=== PATIENT | male | born 1975 | race Caucasian/White ===

== ENCOUNTER 2017-08-17 22:19 | Emergency (ER) | payer BC, OTHER ==
[~2017-08-17] VITALS: Ht 175.3 cm; Wt 77.8 kg
[2017-08-17 22:26] VITALS: TEMP 36.5; Ht 175.3 cm; Wt 77.8 kg
--- NOTE | 2017-08-17 23:09 | EMERGENCY ROOM VISIT NOTE ---
History Report prepared by Zurdo: Miguel Wilder Under the Supervision of: Dr. Hieu Lancaster M.D. First contact with patient: 22:49 Chief Complaint: ABDOMINAL PAIN Stated Complaint: PAIN IN LOWER STOMACH AND GROIN AREA Nursing Triage Summary: pt c/o lower abdominal/pelvic area pain. states pain has been "off and on since may." denies n/v/d. ciera trauma. History of Present Illness The patient is a 41 year old male who presents to the Emergency Room with complaints of intermittent groin pain beginning a few months ago. The patient states that his pain has been intermittent for the last few months, but notes that his pain has been constant since yesterday. He reports that his pain makes him uncomfortable, and states that it causes him to lose his appetite. He also complains of occasional back pain, and notes that his pain occasionally wraps around his abdomen and shoots down his legs. He denies any nausea, vomiting, fever, and urinary symptoms. The patient reports that he has not noticed that anything he does changes his pain. He states that he is currently on penicillin because he had a tooth pulled last week. The patient notes that he is also on Cipro and Flomax for an enlarged prostate. He reports that he is unsure if his current pain is related to his enlarged prostate. He states that he has seen many different practitioners, and was diagnosed with two different types of hernias and then gallstones and kidney stones after the radiologist misread his CT. The patient notes that he is not satisfied with his previous diagnoses, prompting his visit to the emergency department tonight. He reports that he has a previous history of back problems and has had a ventral hernia repair. Source of History: patient Onset: a few months ago Position: other (groin) Timing: intermittent Associated Symptoms: + abdominal pain, + back pain, No fevers, No nausea, No vomiting, No urinary symptoms Note: The patient also complains of a loss of appetite and leg pain. Review of Systems See HPI for pertinent positives & negatives. A total of 10 systems reviewed and were otherwise negative. Past Medical & Surgical Medical Problems: (1) Anxiety (2) Enlarged prostate (3) Hernia Surgical Problems: (1) H/O tooth extraction (2) H/O ventral hernia repair Family History Diabetes mellitus FHx: cancer Heart disease Hypertension Social History Smoking Status: Never Smoker Alcohol Use: none Marital Status: Housing Status: lives with family Occupation Status: employed Current/Historical Medications Scheduled Hyoscyamine Sulfate (Levsin), 1-2 TAB PO Q6 Penicillin V Potassium (Veetids), 500 MG PO TID Tamsulosin Hcl (Flomax), 0.4 MG PO BID Allergies Coded Allergies: No Known Allergies (Unverified , 08/17/17) Physical Exam Vital Signs Date Time Temp Pulse Resp B/P (MAP) Pulse Ox O2 Delivery O2 Flow Rate FiO2 08/18/17 01:18 78 18 132/81 98 Room Air 08/17/17 23:55 70 18 138/87 98 Room Air 08/17/17 22:26 36.5 66 18 133/84 97 Room Air Physical Exam GENERAL: Patient is anxious appearing and in moderate distress. EYES: No scleral icterus, unremarkable pupils. ENT: Mucous membranes moist, no nasal congestion. NECK: No masses appreciated, no meningismus, trachea is midline. RESPIRATORY: No dyspnea. Clear to auscultation and equal bilaterally. No wheeze , no rhonchi. CARDIOVASCULAR: Regular rate and rhythm. No murmurs, rubs, gallops appreciated. GASTROINTESTINAL: Abdomen soft, no peritonitis. Bowel sounds positive. No masses appreciated. Mild suprapubic tenderness to palpation, no rebound, no guarding. Old healed horizontal upper abdominal incision scar. BACK: No midline tenderness, no CVA tenderness EXTREMITIES: Normal motion all extremities, no cyanosis, no edema. NEUROLOGIC: Alert and oriented, no acute motor or sensory deficits, no focal weakness, cranial nerves grossly intact. SKIN: No rash, no jaundice, no diaphoresis. Medical Decision & Procedures ER Provider Diagnostic Interpretation: Radiology results and stated below per my review and radiologist interpretation: CT ABDOMEN & PELVIS With Contrast: Lower thorax than stress atelectasis. Gallstones. No CT evidence of acute cholecystitis. Liver, spleen, pancreas and adrenal glands are unremarkable. Kidneys, ureters, and urinary bladder are unremarkable. Moderate enlargement of the prostate gland. Appendix is unremarkable. Bowel is unremarkable. Tiny fat- containing hiatal hernia. No acute osseous abnormality. Radiologist: Paxton Herbert MD. Laboratory Results 08/17/17 23:20 Red Blood Count 4.77, Mean Corpuscular Volume 91.2, Mean Corpuscular Hemoglobin 31.0, Mean Corpuscular Hemoglobin Concent 34.0, Mean Platelet Volume 9.3, Neutrophils (%) (Auto) 57.3, Lymphocytes (%) (Auto) 31.1, Monocytes (%) (Auto) 9.6, Eosinophils (%) (Auto) 1.5, Basophils (%) (Auto) 0.3, Neutrophils # (Auto) 5.04, Lymphocytes # (Auto) 2.73, Monocytes # (Auto) 0.84, Eosinophils # (Auto) 0.13, Basophils # (Auto) 0.03 08/17/17 23:20 Test 08/17/17 22:40 08/17/17 23:20 08/17/17 23:24 Urine Color YELLOW Urine Appearance CLEAR (CLEAR) Urine pH 5.5 (4.5-7.5) Urine Specific [place] 1.020 (1.000-1.030) Urine Protein NEG (NEG) Urine Glucose (UA) NEG (NEG) Urine Ketones NEG (NEG) Urine Occult Blood NEG (NEG) Urine Nitrite NEG (NEG) Urine Bilirubin NEG (NEG) Urine Urobilinogen NEG (NEG) Urine Leukocyte Esterase NEG (NEG) Urine WBC (Auto) 1-5 /hpf (0-5) Urine RBC (Auto) 0-4 /hpf (0-4) Urine Hyaline Casts (Auto) 1-5 /lpf (0-5) Urine Epithelial Cells (Auto) 0-5 /lpf (0-5) Urine Bacteria (Auto) NEG (NEG) White Blood Count 8.79 K/uL (4.8-10.8) Red Blood Count 4.77 M/uL (4.7-6.1) Hemoglobin 14.8 g/dL (14.0-18.0) Hematocrit 43.5 % (42-52) Mean Corpuscular Volume 91.2 fL (80-100) Mean Corpuscular Hemoglobin 31.0 pg (25-34) Mean Corpuscular Hemoglobin Concent 34.0 g/dl (32-36) Platelet Count 300 K/uL (130-400) Mean Platelet Volume 9.3 fL (7.4-10.4) Neutrophils (%) (Auto) 57.3 % Lymphocytes (%) (Auto) 31.1 % Monocytes (%) (Auto) 9.6 % Eosinophils (%) (Auto) 1.5 % Basophils (%) (Auto) 0.3 % Neutrophils # (Auto) 5.04 K/uL (1.4-6.5) Lymphocytes # (Auto) 2.73 K/uL (1.2-3.4) Monocytes # (Auto) 0.84 K/uL (0.11-0.59) Eosinophils # (Auto) 0.13 K/uL (0-0.5) Basophils # (Auto) 0.03 K/uL (0-0.2) RDW Standard Deviation 44.4 fL (36.4-46.3) RDW Coefficient of Variation 13.4 % (11.5-14.5) Immature Granulocyte % (Auto) 0.2 % Immature Granulocyte # (Auto) 0.02 K/uL (0.00-0.02) Est Creatinine Clear Calc Drug Dose 110.8 ml/min Estimated GFR () 123.1 Estimated GFR (Non- 106.2 BUN/Creatinine Ratio 12.1 (10-20) Calcium Level 8.7 mg/dl (8.5-10.1) Total Bilirubin 0.3 mg/dl (0.2-1) Direct Bilirubin 0.1 mg/dl (0-0.2) Aspartate Amino Transf (AST/SGOT) 14 U/L (15-37) Alanine Aminotransferase (ALT/SGPT) 26 U/L (12-78) Alkaline Phosphatase 55 U/L (45-117) C-Reactive Protein < 0.29 mg/dl (0-0.29) Total Protein 7.5 gm/dl (6.4-8.2) Albumin 4.1 gm/dl (3.4-5.0) Lipase 198 U/L (73-393) Bedside Hemoglobin 15.0 g/dl (14.0-18.0) Bedside Hematocrit 44 % (42-52) Bedside Sodium 140 mEq/L (135-144) Bedside Potassium 3.5 mEq/L (3.3-5.0) Bedside Chloride 102 mEq/L (101-112) Bedside Total CO2 27 mEq/l (24-31) Anion Gap 16.0 mmol/L (16-25) Bedside Blood Urea Nitrogen 10 mg/dl (7-18) Bedside Creatinine 0.8 mg/dl (0.6-1.3) Bedside Glucose (other) 93 mg/dl (70-99) Bedside Ionized Calcium (Sandra) 1.08 mmol/l (1.12-1.32) Laboratory results as reviewed by me. Medications Administered Medications (Trade) Dose Ordered Sig/Mendy Route Start Time Stop Time Status Last Admin Dose Admin Sodium Chloride 1,000 ml @ 999 mls/hr Q1H1M STAT IV 08/17/17 23:10 08/18/17 00:10 DC 08/17/17 23:20 999 MLS/HR Hyoscyamine Sulfate (Levsin Tab) 0.125 mg NOW STAT PO 08/18/17 01:06 08/18/17 01:07 DC 08/18/17 01:13 0.125 MG ED Course 2254: The patient was evaluated in room A9. A complete history and physical exam was performed. 2332: I reevaluated and updated the patient. He refused his Ativan. 0034: I rechecked the patient. His mood is much improved. He states that both his uncle and grandfather both of prostate cancer. 0118: Reevaluated the patient. Discussed results and discharge instructions: he verbalized understanding and agreement. The patient is ready for discharge. Medical Decision Differential: Prostatitis, Urinary Retention, Appendicitis, Diverticulitis, PUD /Gastritis, Biliary Pathology, UTI, Pyelonephritis, Renal Colic, Bowel Obstruction, Aortic Pathology, amongst other pathologies entertained. 41 yr old male with spasming suprapubic pain on and off over last 2 months. Has had extensive evaluations and work-ups thus far with continued symptoms despite Flomax, Cipro x 2. Has been seen by Urology, Gen Surg, and PCP on multiple occasions. Sounds like feeling is it may be somehow associated with Prostate enlargement and this further upsets patietn given he has 2 relatives that of Prostate CA on his mother's side. Review of testing reveals likely CT abdo/pelv but without con. Given persistent symptoms and no previous CT with IV con felt it reasonable to do this for further evaluation. Labs look normal with normal WBC, normal CRP and clear urine thus it is highly unlikely this is infectious. CT without report of abscess nor obvious prostatitis. No masses reported. Prostate is clearly large and there also appears to be some bladder wall thickening. Patient stable and looks well with other labs unremarkable as well. No evidence this is hernia, infectious, renal colic, bowel related, aortic issue, nor other acute issue. Does not appear to be retention but there is clearly thickened bladder wall. Suspect this is bladder spasm given likely previous retention and now thickened bladder wall. No indication for jesus at this time. Has close follow up with Urology already planned. He was given all his labs and imaging to take to Urologist. We reviewed symptoms requiring Return as well as the limitations of the ED. Medication Reconcilliation Current Medication List: was personally reviewed by me Blood Pressure Screening Patient's blood pressure: Elevated blood pressure Blood pressure disposition: Elevated BP felt to be situational Impression Primary Impression: Suprapubic pain, acute Additional Impressions: Bladder wall thickening Enlarged prostate Scribe Attestation The scribe's documentation has been prepared under my direction and personally reviewed by me in its entirety. I confirm that the note above accurately reflects all work, treatment, procedures, and medical decision making performed by me. Departure Information Dispostion Home / Self-Care Prescriptions Hyoscyamine Sulfate (LEVSIN) 0.125 Mg Tab 1-2 TAB PO Q6 for 30 Days, #25 TAB 1 Refill Prov: Hieu Lancaster M.D. 08/18/17 Referrals Mark Allen D.O. (PCP) Jigar Price M.D. Forms Call Back Authorization, HOME CARE DOCUMENTATION FORM, IMPORTANT VISIT INFORMATION Patient Instructions My [facility] Additional Instructions There was thickening of your bladder wall and prostate enlargement on your CT Scan. This is likely due to chronically enlarged prostate and may be causing some spasm or pain. Currently there is no clear evidence of infection, though you may require further antibiotics per your Urologists evaluation. If you develop severe worsening of pain, fevers, vomiting, passing out, burning with urination, blood in urine or other emergent concerns we are always available to re-evaluate you. Please follow up with your Urologist as planned or you may call the numbers given to try setting up with another Urologist here. Please discuss with them Cystoscopy (camera in the bladder), MRI of Prostate, Prostate Biopsy and whether any of these, or other testing, would be beneficial at all. Problem Qualifiers
[2017-08-17] MEDS ORDERED: LORAZEPAM 2 MG/ML 1 ML VIAL IV STA (23:10)
[2017-08-17] MEDS ORDERED: SODIUM CHLORIDE 0.9% 1000ML 1,000 ML IV STA (23:10)
[2017-08-17] MEDS ORDERED: TAMS0.4C38 PO (23:26)
[2017-08-17] MEDS ORDERED: PENI-82 PO (23:26)
[2017-08-17] MEDS ORDERED: OPTIRAY 320 IV PRN (23:30)
[2017-08-17 23:34] LABS: BASO % 0.3 %; BASO ABS # 0.03 K/uL (0-0.2); EOS % 1.5 %; EOS ABS # 0.13 K/uL (0-0.5); HEMATOCRIT 43.5 % (42-52); HEMOGLOBIN 14.8 g/dL (14.0-18.0); IG# 0.02 K/uL (0.00-0.02); LYMPH % 31.1 %; LYMPH ABS # 2.73 K/uL (1.2-3.4); MEAN CELL VOLUME 91.2 fL (80-100); MEAN PLATELET VOLUME 9.3 fL (7.4-10.4); MONO % 9.6 %; MONO ABS # 0.84 K/uL (0.11-0.59); NEUT % 57.3 %; NEUT ABS # 5.04 K/uL (1.4-6.5); PLATELET COUNT 300 K/uL (130-400); RED CELL DISTRIBUTION WIDTH CV 13.4 % (11.5-14.5); RED CELL DISTRIBUTION WIDTH SD 44.4 fL (36.4-46.3); WHITE BLOOD COUNT 8.79 K/uL (4.8-10.8)
[2017-08-17 23:45] LABS: ISTAT CREATININE 0.8 mg/dl (0.6-1.3); ISTAT IONIZED CALCIUM 1.08 mmol/l (1.12-1.32); ISTAT POTASSIUM 3.5 mEq/L (3.3-5.0)
[2017-08-17 23:51] LABS: ALBUMIN 4.1 gm/dl (3.4-5.0); ALT/SGPT 26 U/L (12-78); AST/SGOT 14 U/L (15-37); BLOOD UREA NITROGEN 10 mg/dl (7-18); CALCIUM 8.7 mg/dl (8.5-10.1); CARBON DIOXIDE 29 mmol/L (21-32); CREATININE 0.86 mg/dl (0.60-1.40); GLUCOSE 88 mg/dl (70-99); LIPASE 198 U/L (73-393); POTASSIUM 3.4 mmol/L (3.5-5.1); SODIUM 139 mmol/L (136-145)
[2017-08-17 23:54] LABS: ALKALINE PHOSPHATASE 55 U/L (45-117); TOTAL PROTEIN 7.5 gm/dl (6.4-8.2)
[2017-08-18] MEDS ORDERED: HYOS0.1255 PO (01:02)
[2017-08-18] MEDS ORDERED: HYOSCYAMINE SULFATE 0.125 MG SL TAB PO STA (01:06)
[2017-08-18 01:18] VITALS: BP 132/81; PULSE 78; O2SAT 98
--- NOTE | 2017-08-18 07:27 | DIAGNOSTIC IMAGING REPORT ---
CT SCAN OF THE ABDOMEN AND PELVIS WITH IV CONTRAST CLINICAL HISTORY: Suprapubic abdominal pain. Reported history of prostate infection. COMPARISON STUDY: No priors. TECHNIQUE: Following the IV administration of 94 cc of Optiray 320, CT scan of the abdomen and pelvis is performed from the lung bases to the proximal femora. Images are reviewed in the axial, sagittal, and coronal planes. IV contrast was administered without complication. A dose lowering technique was utilized adhering to the principles of ALARA. CT DOSE: 336.49 mGy.cm FINDINGS: Lung bases: The heart is normal in size and without pericardial effusion. Small fat-containing Bochdalek hernias are present at the lung bases. The lung bases are otherwise clear noting dependent atelectasis. Liver: The contrast-enhanced liver is normal in size, contour, and attenuation. There is no intrahepatic biliary ductal dilatation. The hepatic veins and portal veins are patent. Gallbladder: There are numerous calcified gallstones. There is no CT evidence of acute cholecystitis. Spleen: Normal in size and attenuation. Pancreas: Unremarkable. Adrenal glands: Unremarkable. Kidneys: The contrast enhanced kidneys are normal in size and without hydronephrosis. The kidneys enhance symmetrically. Abdominal vasculature: The abdominal aorta is normal in course and caliber. Bowel: There is mild colonic fecal retention. No bowel obstruction is seen. The appendix is well-visualized and normal. Peritoneum: There is no intraperitoneal free air or abdominal ascites. There is a moderate fat-containing umbilical hernia. Lymphadenopathy: None. Pelvic viscera: The prostate gland is enlarged and heterogeneous, measuring up to 6.1 cm in transverse diameter. The bladder wall appears mildly thickened and trabeculated suggesting chronic outlet obstruction. Skeletal structures: No lytic or blastic lesions are seen. IMPRESSION: 1. There are no acute infectious or inflammatory findings in the abdomen or pelvis. 2. The prostate gland is enlarged and heterogeneous measuring up to 6.1 cm in transverse diameter. 3. The bladder wall appears mildly thickened and trabeculated, suggesting the sequelae of chronic outlet obstruction. Correlation with urinalysis is recommended. 4. Cholelithiasis without CT evidence of acute cholecystitis. Electronically signed by: Manny Riley M.D. 08/18/2017 7:26 AM Dictated Date/Time: 08/18/2017 7:21 AM
== END 2017-08-18 01:20 | disposition home or self-care (01) ==
LOC: C.EDB 22:21 → C.EDA 08-18 01:20
DX: R10.9 Unspecified abdominal pain (principal); N40.0 Benign prostatic hyperplasia without lower urinary tract symptoms; N32.89 Other specified disorders of bladder; F41.9 Anxiety disorder, unspecified; Z83.3 Family history of diabetes mellitus; Z80.9 Family history of malignant neoplasm, unspecified; Z82.49 Family history of ischemic heart disease and other diseases of the circulatory system; Z79.899 Other long term (current) drug therapy

== ENCOUNTER 2017-08-31 22:14 | Emergency (ER) | payer BC ==
[~2017-08-31] VITALS: Ht 177.8 cm; Wt 78.5 kg
[~2017-08-31 22:14] MED LIST: HYOS0.1255 PO; PENI-82 PO; TAMS0.4C38 PO
[2017-08-31 22:17] VITALS: TEMP 36.5; Ht 177.8 cm; Wt 78.5 kg
[2017-08-31] MEDS ORDERED: FLM4 PO (22:53)
[2017-08-31] MEDS ORDERED: LIDOCAINE HCL 2% VISC SOLN 20 ML UDC PO STA (23:12)
[2017-08-31] MEDS ORDERED: ALUMINUM/MAGNESIUM SUSP 30 ML UDC PO STA (23:12)
[2017-08-31 23:30] VITALS: O2SAT 97
[2017-08-31 23:57] LABS: CALCIUM 8.8 mg/dl (8.5-10.1); CREATININE 0.87 mg/dl (0.60-1.40); POTASSIUM 3.5 mmol/L (3.5-5.1)
[2017-08-31 23:58] LABS: BASO % 0.4 %; BASO ABS # 0.03 K/uL (0-0.2); EOS % 1.1 %; EOS ABS # 0.09 K/uL (0-0.5); HEMATOCRIT 41.2 % (42-52); HEMOGLOBIN 14.5 g/dL (14.0-18.0); IG# 0.03 K/uL (0.00-0.02); LYMPH % 28.5 %; LYMPH ABS # 2.43 K/uL (1.2-3.4); MEAN CORPUSCULAR HEMOGLOBIN 31.7 pg (25-34); MEAN CORPUSCULAR HGB CONC 35.2 g/dl (32-36); MEAN PLATELET VOLUME 9.3 fL (7.4-10.4); MONO % 8.4 %; MONO ABS # 0.72 K/uL (0.11-0.59); NEUT % 61.2 %; NEUT ABS # 5.23 K/uL (1.4-6.5); PLATELET COUNT 286 K/uL (130-400); RED CELL DISTRIBUTION WIDTH CV 13.2 % (11.5-14.5); RED CELL DISTRIBUTION WIDTH SD 43.3 fL (36.4-46.3); WHITE BLOOD COUNT 8.53 K/uL (4.8-10.8)
[2017-09-01 00:08] LABS: TOTAL PROTEIN 7.2 gm/dl (6.4-8.2)
[2017-09-01] MEDS ORDERED: PANTOprazole SOD 40 MG TAB PO STA (00:54)
[2017-09-01 00:59] VITALS: BP 120/85; PULSE 63; O2SAT 96
--- NOTE | 2017-09-01 00:59 | EMERGENCY ROOM VISIT NOTE ---
History First contact with patient: 22:45 Chief Complaint: OTHER COMPLAINT Stated Complaint: PAIN IN SHOULDER BLADES-SICK STOMACH-CANT SWALLOW History of Present Illness The patient is a 41 year old male who presents to the Emergency Room with complaints of ongoing fatigue, intermittent upper abdominal discomfort, intermittent reflux, intermittent upper back pain, intermittent diffuse abdominal pain for the past several months who is seen multiple providers and has had extensive testing with unclear etiology. Patient states he has no large prostate and has been thoroughly treated for prostatitis. He does not believe any his symptoms are stemming from this. He was told 2 weeks ago that he has gallstones. He believes his symptoms are from this. He has not had a HIDA scan. He has an appointment next week with surgery. Patient states that he wants answers tonight and is extremely displeased with his current health care. Patient denies current chest pain, dyspnea, localized abdominal pain, fever, chills, cough, congestion, urinary symptoms, rectal discomfort. No prior endoscopy or colonoscopy. The is present who states that her main concern today is the gallbladder and would like an ultrasound. Review of Systems An 10 system review of systems was completed with positives and pertinent negatives listed in the HPI. Past Medical/Surgical History Medical Problems: (1) Anxiety (2) Enlarged prostate (3) Hernia Surgical Problems: (1) H/O tooth extraction (2) H/O ventral hernia repair Family History Diabetes mellitus FHx: cancer Heart disease Hypertension Social History Smoking Status: Former Smoker Alcohol Use: none Marital Status: Housing Status: lives with family Occupation Status: employed Current/Historical Medications Scheduled Tamsulosin HCl (Tamsulosin HCl), 0.4 MG PO BID Physical Exam Vital Signs Date Time Temp Pulse Resp B/P (MAP) Pulse Ox O2 Delivery O2 Flow Rate FiO2 09/01/17 00:04 66 16 127/69 97 Room Air 08/31/17 23:38 66 08/31/17 23:31 78 18 136/76 98 Room Air 08/31/17 23:30 97 Room Air 08/31/17 23:26 99 Room Air 08/31/17 22:17 36.5 75 20 119/79 98 Room Air Physical Exam VITALS: Vitals are noted on the nurse's note and reviewed by myself. Vital signs stable. GENERAL: White male upset and disgruntled, in no acute distress, nondiaphoretic , well-developed well-nourished. SKIN: The skin was without rashes, erythema, edema, or bruising. There is no tenting of the skin. Capillary reflex less than 2 seconds. HEAD: Normocephalic atraumatic. EARS: External auditory canals clear, tympanic membranes pearly baez without erythema or effusion bilaterally. EYES: Pupils equal round and reactive to light and accommodation. Conjunctivae without injection, sclerae without icterus. Extraocular movements intact. NOSE: Patent, turbinates without inflammation or discharge. MOUTH: Mucous membranes moist. Pharynx without erythema or exudate. Uvula midline. Airway patent. Tongue does not deviate. NECK: Supple without nuchal rigidity. No lymphadenopathy. No thyromegaly. Cervical spine is nontender. No JVD. HEART: Regular rate and rhythm without murmurs gallops or rubs. LUNGS: Clear to auscultation bilaterally without wheezes, rales or rhonchi. No retractions or accessory muscle use. ABDOMEN: Positive bowel sounds x 4. Normal tympanic percussion. Soft, nontender, without masses or organomegaly. Brown sign negative. No guarding or rebound tenderness. No CVA tenderness MUSCULOSKELETAL: No muscle atrophy, erythema, or edema noted. NEURO: Patient was alert and oriented to person place and time. Normal sensation to light and sharp touch. No focal neurological deficits. Medical Decision & Procedures Laboratory Results 08/31/17 23:28 Red Blood Count 4.58, Mean Corpuscular Volume 90.0, Mean Corpuscular Hemoglobin 31.7, Mean Corpuscular Hemoglobin Concent 35.2, Mean Platelet Volume 9.3, Neutrophils (%) (Auto) 61.2, Lymphocytes (%) (Auto) 28.5, Monocytes (%) (Auto) 8.4, Eosinophils (%) (Auto) 1.1, Basophils (%) (Auto) 0.4, Neutrophils # (Auto) 5.23, Lymphocytes # (Auto) 2.43, Monocytes # (Auto) 0.72, Eosinophils # (Auto) 0.09, Basophils # (Auto) 0.03 08/31/17 23:28 Test 08/31/17 23:28 08/31/17 23:31 White Blood Count 8.53 K/uL (4.8-10.8) Red Blood Count 4.58 M/uL (4.7-6.1) Hemoglobin 14.5 g/dL (14.0-18.0) Hematocrit 41.2 % (42-52) Mean Corpuscular Volume 90.0 fL (80-100) Mean Corpuscular Hemoglobin 31.7 pg (25-34) Mean Corpuscular Hemoglobin Concent 35.2 g/dl (32-36) Platelet Count 286 K/uL (130-400) Mean Platelet Volume 9.3 fL (7.4-10.4) Neutrophils (%) (Auto) 61.2 % Lymphocytes (%) (Auto) 28.5 % Monocytes (%) (Auto) 8.4 % Eosinophils (%) (Auto) 1.1 % Basophils (%) (Auto) 0.4 % Neutrophils # (Auto) 5.23 K/uL (1.4-6.5) Lymphocytes # (Auto) 2.43 K/uL (1.2-3.4) Monocytes # (Auto) 0.72 K/uL (0.11-0.59) Eosinophils # (Auto) 0.09 K/uL (0-0.5) Basophils # (Auto) 0.03 K/uL (0-0.2) RDW Standard Deviation 43.3 fL (36.4-46.3) RDW Coefficient of Variation 13.2 % (11.5-14.5) Immature Granulocyte % (Auto) 0.4 % Immature Granulocyte # (Auto) 0.03 K/uL (0.00-0.02) Anion Gap 7.0 mmol/L (3-11) Est Creatinine Clear Calc Drug Dose 113.0 ml/min Estimated GFR () 122.5 Estimated GFR (Non- 105.7 BUN/Creatinine Ratio 12.5 (10-20) Calcium Level 8.8 mg/dl (8.5-10.1) Magnesium Level 2.1 mg/dl (1.8-2.4) Total Bilirubin 0.8 mg/dl (0.2-1) Direct Bilirubin 0.2 mg/dl (0-0.2) Aspartate Amino Transf (AST/SGOT) 17 U/L (15-37) Alanine Aminotransferase (ALT/SGPT) 25 U/L (12-78) Alkaline Phosphatase 44 U/L (45-117) Total Protein 7.2 gm/dl (6.4-8.2) Albumin 4.0 gm/dl (3.4-5.0) Lipase 144 U/L (73-393) Thyroid Stimulating Hormone (TSH) 2.420 uIu/ml (0.300-4.500) Lyme Disease IgG Antibody NEG (NEG) Lyme Disease IgM Antibody NEG (NEG) Monoscreen NEG (NEG) Bedside Troponin I < 0.030 ng/ml (0-0.045) Medications Administered Medications (Trade) Dose Ordered Sig/Mendy Route Start Time Stop Time Status Last Admin Dose Admin Lidocaine HCl (Viscous Lidocaine 2% Soln) 10 ml NOW STAT PO 08/31/17 23:12 08/31/17 23:15 DC 08/31/17 23:25 10 ML Al Hydroxide/Mg Hydroxide (Maalox Susp) 30 ml NOW STAT PO 08/31/17 23:12 08/31/17 23:15 DC 08/31/17 23:25 30 ML ED Course Prior records/ancillary studies reviewed and summarized above. Nursing notes reviewed. Additional history obtained from . The patient's history was concerning for intermittent abdominal pains, back pains, fatigue for the past several months. Differential diagnosis: Etiologies such as metabolic, infection, hypo/hyperglycemia, electrolyte abnormalities, cardiac sources, intracerebral event, toxicologic, neurologic, as well as others were entertained. Physical examination: As above. ER treatment provided: IV Lock GI cocktail On reassessment the patient felt better. Diagnostics interpretation by me: ECG: Normal sinus, normal intervals, no acute ST-T wave changes. Impression normal sinus rhythm interpreted by myself The labs revealed neg lymes No leukocytosis. Stable H&H Negative troponin Imaging studies: US GALLBLADDER: COMPARISON: CT DATED 08/17/17. IMPRESSION: Liver measures 17.8 cm without evidence of a focal lesion. Multiple gallstones in the gallbladder neck. Mild gallbladder wall thickening measuring 3 mm. No pericholecystic fluid. Sonographic Brown sign not reported by bioinformatics research technician. What is felt to represent the common bile duct measures 5 mm. Visualized portions of the pancreas unremarkable. Right kidney is normal in appearance.. Radiologist: Yannick Jolley, DO Chest x-ray with no acute consolidation, pneumothorax or free of my interpretation CT SCAN OF THE ABDOMEN AND PELVIS WITH IV CONTRAST CLINICAL HISTORY: Suprapubic abdominal pain. Reported history of prostate infection. COMPARISON STUDY: No priors. TECHNIQUE: Following the IV administration of 94 cc of Optiray 320, CT scan of the abdomen and pelvis is performed from the lung bases to the proximal femora. Images are reviewed in the axial, sagittal, and coronal planes. IV contrast was administered without complication. A dose lowering technique was utilized adhering to the principles of ALARA. CT DOSE: 336.49 mGy.cm FINDINGS: Lung bases: The heart is normal in size and without pericardial effusion. Small fat-containing Bochdalek hernias are present at the lung bases. The lung bases are otherwise clear noting dependent atelectasis. Liver: The contrast-enhanced liver is normal in size, contour, and attenuation. There is no intrahepatic biliary ductal dilatation. The hepatic veins and portal veins are patent. Gallbladder: There are numerous calcified gallstones. There is no CT evidence of acute cholecystitis. Spleen: Normal in size and attenuation. Pancreas: Unremarkable. Adrenal glands: Unremarkable. Kidneys: The contrast enhanced kidneys are normal in size and without hydronephrosis. The kidneys enhance symmetrically. Abdominal vasculature: The abdominal aorta is normal in course and caliber. Bowel: There is mild colonic fecal retention. No bowel obstruction is seen. The appendix is well-visualized and normal. Peritoneum: There is no intraperitoneal free air or abdominal ascites. There is a moderate fat-containing umbilical hernia. Lymphadenopathy: None. Pelvic viscera: The prostate gland is enlarged and heterogeneous, measuring up to 6.1 cm in transverse diameter. The bladder wall appears mildly thickened and trabeculated suggesting chronic outlet obstruction. Skeletal structures: No lytic or blastic lesions are seen. IMPRESSION: 1. There are no acute infectious or inflammatory findings in the abdomen or pelvis. 2. The prostate gland is enlarged and heterogeneous measuring up to 6.1 cm in transverse diameter. 3. The bladder wall appears mildly thickened and trabeculated, suggesting the sequelae of chronic outlet obstruction. Correlation with urinalysis is recommended. 4. Cholelithiasis without CT evidence of acute cholecystitis. Electronically signed by: Manny Riley M.D. 08/18/2017 7:26 AM Dictated Date/Time: 08/18/2017 7:21 AM Exam and history seem consistent with nausea, intermittent upper back pain intermittent abdominal pain, fatigue for the past few months with unclear etiology. Patient felt much better after the GI cocktail. He had no pain in the right upper quadrant. He was advised to follow-up outpatient for further workup on his gallbladder and patient was agreeable to this. Patient was neurovascularly and neurologically intact. He is well-appearing. His symptoms been ongoing for several months now. Patient seen multiple providers and seems to be doctor shopping. Even tonight he has to be seen by a [facility] surgeon as to the [facility] field surgeon he has been following up with. Patient was strongly encouraged to follow-up his family care doctor and his current surgeon and possible GI symptoms persist. Patient had a CAT scan 2 weeks ago that was unremarkable. No new findings on today's workup. Patient was offered surgical evaluation and declined. He did not have acute abdomen on exam. He was well-appearing. He was afebrile nontoxic. He is advised to return to the ER meaty for chest pain, difficulty breathing, abdominal pain, worsening signs or symptoms or as needed. Patient was advised to do low-fat and bland diet until symptoms resolve. He was advised to take Maalox or Zantac for breakthrough symptoms. By the evaluation outlined above emergent etiologies such as infection, electrolyte abnormalities, cardiac sources, intracerebral event, toxologic, neurologic, abnormalities blood glucose, metabolic, as well as others were deemed relatively unlikely. The pt informed about the findings as listed above. All questions were answered. Return instructions were outlined and the patient was discharged in stable condition. Outpatient prescription management: Protonix Referral: The patient was referred back to surgery and primary care physician for follow- up in 2 to 3 days for a recheck of the current condition. Case reviewed with my attending The chart was completed utilizing [email or web address] Speech voice recognition software. Grammatical errors, random word insertions, pronoun errors, and incomplete sentences are an occassional consequence of this system due to software limitations, ambient noise, and hardware issues. Any formal questions or concerns about the content, text, or information contained within the body of this dictation should be directly addressed to the physician surgical dental assistant for clarification. Medical Decision As above Medication Reconcilliation Current Medication List: was personally reviewed by me Blood Pressure Screening Patient's blood pressure: Normal blood pressure Impression Primary Impression: Nausea Additional Impressions: Intermittent abdominal pain Intermittent back pain Fatigue Cholelithiasis Departure Information Dispostion Home / Self-Care Condition GOOD Referrals Mark Allen D.O. (PCP) Patient Instructions My [facility] [employer] Additional Instructions Protonix 40 m tablet daily for next 2 weeks. Take this on an empty stomach. Try Maalox or Zantac for breakthrough symptoms for reflux. Avoid large meals. Avoid acidic foods. Rest and drink plenty of fluids as tolerated. Continue current medications. Avoid strenuous activities and anything that worsens your pain. Resume normal activities once your symptoms resolve. Return to the ER immediately for worsening or persistent chest pain, abdominal pain, black or blood in your stools, vomiting, fevers, chest pains, difficulty breathing, worsening of your condition, or as needed. Follow up with your primary physician and surgeon in 2-3 days for a recheck of your current condition. Recommend outpatient HIDA scan and endoscopy and colonoscopy if symptoms persist. Problem Qualifiers
[2017-09-01] MEDS ORDERED: PANT40TA PO (01:10)
--- NOTE | 2017-09-01 07:06 | DIAGNOSTIC IMAGING REPORT ---
CHEST ONE VIEW PORTABLE CLINICAL HISTORY: weak dyspnea COMPARISON STUDY: No previous studies for comparison. FINDINGS: The bones soft tissues and hemidiaphragms are normal. The cardiomediastinal silhouette is normal. The lungs are clear. The pulmonary vasculature is normal. IMPRESSION: Negative chest. The above report was generated using voice recognition software. It may contain grammatical, syntax or spelling errors. Electronically signed by: Gasper Goldman M.D. 09/01/2017 7:04 AM Dictated Date/Time: 09/01/2017 7:04 AM
--- NOTE | 2017-09-01 07:10 | DIAGNOSTIC IMAGING REPORT ---
ABDOMINAL ULTRASOUND, RIGHT UPPER QUADRANT HISTORY: Right upper quadrant abdominal pain.. COMPARISON: Abdomen and pelvis CT 08/13/2013. FINDINGS: Pancreas: The pancreatic head and tail are obscured by overlying bowel gas. The remaining portions of the pancreas are within normal limits. Liver: Unremarkable. Gallbladder: Multiple small gallstones at the gallbladder neck. Small amount of gallbladder sludge. Borderline gallbladder wall thickening at 3 mm. No pericholecystic fluid. CBD: Common bile duct is not well-visualized but may measure up to 5 mm. Right kidney: No hydronephrosis. IMPRESSION: 1. Multiple small gallstones at the gallbladder neck. The gallbladder wall is borderline thickened at 3 mm. Clinical correlation recommended to assess for an entirely acute cholecystitis. 2. The common bile duct is not well visualized but may measure up to 5 mm. Electronically signed by: Cosme Salvador M.D. 09/01/2017 7:09 AM Dictated Date/Time: 09/01/2017 7:06 AM
== END 2017-09-01 01:29 | disposition home or self-care (01) ==
LOC: C.EDB 22:16 → C.EDA 09-01 01:29
DX: K80.20 Calculus of gallbladder without cholecystitis without obstruction (principal); R53.83 Other fatigue; F41.9 Anxiety disorder, unspecified; N40.0 Benign prostatic hyperplasia without lower urinary tract symptoms; Z87.891 Personal history of nicotine dependence; Z83.3 Family history of diabetes mellitus; Z80.9 Family history of malignant neoplasm, unspecified; Z82.49 Family history of ischemic heart disease and other diseases of the circulatory system; Z79.899 Other long term (current) drug therapy

== ENCOUNTER → 2017-12-01 | Outpatient (CLI) | payer BC ==
[~2017-12-01] MED LIST changes: +FLM4 PO; -HYOS0.1255 PO; +OXYC-57 PO; -PENI-82 PO; +RANI150T85 PO; -TAMS0.4C38 PO
== END | disposition home or self-care (01) ==
LOC: C.LABPBG 08:31
PROVIDERS: ATTEND Physician Assistant
DX: M99.08 Segmental and somatic dysfunction of rib cage (principal)